=== PATIENT | male | born 1985 | race Caucasian/White ===

== ENCOUNTER 2020-01-19 17:16 | Emergency (ER) | payer OTHER ==
[~2020-01-19] VITALS: Ht 167.6 cm; Wt 88.6 kg
[2020-01-19 17:21] VITALS: BP 113/79
== END 2020-01-19 18:26 | disposition home or self-care (01) ==
LOC: EMS 17:18
DX: F17.210 Nicotine dependence, cigarettes, uncomplicated (principal); Z20.828 Contact with and (suspected) exposure to other viral communicable diseases

== ENCOUNTER 2020-03-28 16:36 | Emergency (ER) | payer OTHER ==
[~2020-03-28] VITALS: Ht 167.6 cm; Wt 90.9 kg
[2020-03-28 16:40] VITALS: BP 139/74
== END 2020-03-28 17:00 | disposition home or self-care (01) ==
LOC: EMS 16:36
DX: Z03.818 Encounter for observation for suspected exposure to other biological agents ruled out (principal); F17.210 Nicotine dependence, cigarettes, uncomplicated
CPT/HCPCS: 99283; 99406; U0003